=== PATIENT | female | born 1940 | race Caucasian/White ===

== ENCOUNTER → 2018-06-14 | Outpatient (CLI) | payer MEDICARE, BC ==
[~2018-06-14] MED LIST: AMLODIPINE BESYL5 MG PO; EVISTA60 MG PO; FOLIC ACID1 MG PO; LEVOTHYROXINE50 MCG PO; LOSARTAN POTAS100 MG PO; METHOTREXATE2.5 MG PO; OMEPRAZOLE40 MG PO
--- NOTE | 2018-06-14 13:42 | Diagnostic Imaging Report ---
Exam: Cervical spine AP lateral oblique History: Neck pain Comparison: None. Findings: No fracture. Retrolisthesis of C4 on C5. Multilevel degenerative disc disease of the cervical spine most advanced at C3-C4 through C6-C7. Mild multilevel facet arthrosis and uncovertebral hypertrophy. Impression: No acute osseous abnormality Retrolisthesis of C4 on C5. Advanced multilevel degenerative disc disease from C3-C4 through C6-C7. Signed by: Dr. Vincent Samuels M.D. on 06/14/2018 1:39 PM
== END ==
LOC: RAD 10:50
DX: M54.2 Cervicalgia (principal)
CPT/HCPCS: 72050

== ENCOUNTER → 2018-07-06 | Outpatient (CLI) | payer MEDICARE, BC ==
--- NOTE | 2018-07-06 11:36 | Diagnostic Imaging Report ---
EXAM: CHEST 2 VIEWS, PA and lateral DATE: 07/06/2018 Time stamp on exam: 10:44 AM INDICATION: Leukocytosis COMPARISON: None FINDINGS: LINES/TUBES: None LUNGS: Focal right medial basilar opacity consistent with a infiltrate. PLEURA: No effusions or pneumothorax. HEART AND MEDIASTINUM: Normal size and contour. BONES AND SOFT TISSUES: No acute findings. IMPRESSION: Right basilar infiltrate. Signed by: Dr. Angel Ohara DO on 07/06/2018 11:32 AM
== END ==
LOC: RAD 10:33
DX: D72.829 Elevated white blood cell count, unspecified (principal)
CPT/HCPCS: 71046

== ENCOUNTER → 2018-07-25 | Outpatient (CLI) | payer MEDICARE, BC ==
--- NOTE | 2018-07-25 16:28 | Diagnostic Imaging Report ---
Frontal and lateral views of the chest. HISTORY: F/U PNEUMONIA COMPARISON: Chest radiographs July 06, 2018 and April 13, 2007. DISCUSSION: Lungs: The lungs are well inflated. No evidence of a consolidative pneumonia or pulmonary alveolar edema. In the right infrahilar region, there is been slowly increasing hyperdensity since 2006. Pleura: No pleural effusion or pneumothorax. Heart and mediastinum: The cardiomediastinal silhouette appears unremarkable. Diffuse scattered atherosclerotic vascular calcifications. Bones and soft tissues: Appear unremarkable. IMPRESSION: Persistent right infrahilar density, which may be secondary to the costovertebral junction or evolving granuloma. Recommend a CT of chest without contrast for further evaluation. Signed by: Dr. Domo Winston D.O., M.M.M. on 07/25/2018 4:25 PM
== END ==
LOC: RAD 15:21
DX: Z09 Encounter for follow-up examination after completed treatment for conditions other than malignant neoplasm (principal); J18.9 Pneumonia, unspecified organism
CPT/HCPCS: 71046

== ENCOUNTER → 2018-08-11 | Outpatient (CLI) | payer MEDICARE, BC ==
[~2018-08-11] MED LIST changes: +IOPAMIDOL 370 MG/ML 200 ML INFUS..BTL INJ ONE; +SODIUM CHLORIDE 0.9% 50ML 50 ML ONE
[2018-08-11 13:25] LABS: CREATININE, SERUM 0.93 mg/dL (0.57-1.11)
--- NOTE | 2018-08-11 15:48 | Diagnostic Imaging Report ---
EXAM: CT Chest WITH contrast INDICATION: Chest radiograph demonstrating right infrahilar density. COMPARISON: Chest radiograph 07/25/2018. TECHNIQUE: Chest was scanned utilizing a multidetector helical scanner from the lung apex through the level of the adrenal glands without administration of IV contrast. Coronal and sagittal reformations were obtained. Routine protocol was performed. IV CONTRAST: 100 mL of Isovue-370. RADIATION DOSE: Total DLP: 499.8 mGy*cm Dose modulation, iterative reconstruction, and/or weight based adjustment of the mA/kV was utilized to reduce the radiation dose to as low as reasonably achievable. COMPLICATIONS: None FINDINGS: LINES/ TUBES: None. LUNGS AND AIRWAYS: The central airways are patent. Minimal biapical pleural-parenchymal opacity. There is a 3 mm groundglass nodule in the right upper lobe on series 3, image 37. There is a 4 mm solid nodule within the right middle lobe on image 64. Scattered 2 mm solid nodules, for example in the right upper lobe on on image 30. There is a 4 mm subpleural nodule in the right lower lobe on image 79. There is a 4 mm triangular-shaped solid nodule along the left major fissure on image 89. There is mild atelectasis in the right middle lobe and lingula. PLEURA: The pleural spaces are clear. HEART AND MEDIASTINUM: There is a 6 mm hypodense nodule within the right thyroid gland. No mediastinal, hilar or axillary lymphadenopathy. No cardiomegaly or pericardial effusion. Atherosclerotic calcifications within the thoracic aorta, branch vessels, and coronary arteries. Prominent right pericardial fat pad. UPPER ABDOMEN: Limited contrast-enhanced views of the upper abdomen are unremarkable. BONES: No acute osseous abnormality. No suspicious lytic or blastic lesions. SOFT TISSUES: Unremarkable. IMPRESSION: Patchy atelectasis in the right middle lobe adjacent to prominent pericardial fat pad likely corresponds to the right infrahilar opacity seen on prior chest radiograph. Small bilateral solid pulmonary nodules measuring up to 4 mm are likely benign in a low risk patient and require no further follow-up. If there is a clinical risk factor for malignancy such as smoking, a follow-up chest CT in 12 months may be considered. Signed by: Dr. Roxy Pena MD on 08/11/2018 3:45 PM
== END ==
LOC: CT 12:38
PROVIDERS: ATTEND Internal Medicine Critical Care Medicine
DX: R91.8 Other nonspecific abnormal finding of lung field (principal)
CPT/HCPCS: 36415; 71260; 82565; 84520; Q9967

== ENCOUNTER → 2018-12-20 | Outpatient (CLI) | payer MEDICARE, BC ==
[~2018-12-20] MED LIST changes: -IOPAMIDOL 370 MG/ML 200 ML INFUS..BTL INJ ONE; -SODIUM CHLORIDE 0.9% 50ML 50 ML ONE
--- NOTE | 2018-12-20 12:15 | Diagnostic Imaging Report ---
Exam: Bone mineral density study. History: 78-year-old postmenopausal female. Comparison: None Discussion: Evaluation of the left hip and lumbar spine was performed utilizing DEXA Hologic bone densitometer. The study is technically adequate. The patient's fracture risk is compared to an age-matched control. Left femoral neck bone mineral density: 0.798 g/cm2, T-score is -0.5, Z-score is 1.8. No previous comparison. Lumbar spine total bone mineral density: 1.15 gm/cm2, T-score is 0.9, Z-score is 3.5. No previous comparison. Impression: Bone mineralization by WHO Classification using T score is normal, fracture risk is not elevated. <T score: NL = -1 or higher Osteopenia = -1 to -2.5 Osteoporosis = -2.5 or lower Z score: < - 1.5 concerning for path> Recommendations: Medical evaluation for secondary causes of low bone mineral density may be appropriate. Correlate clinically for the necessity and timing of the next bone mineral density study. National Osteoporosis Foundation recommendations: Initiate therapy to reduce fracture risk in postmenopausal women with -BMD t-scores below -2 by central DXA with no risk factors -BMD t-scores below -1.5 by central DXA with one or more risk factors (first deg relative with hip fracture, prior personal fracture, low body weight, smoking) -A prior vertebral or hip fracture AACE (Clinical Endocrinology) recommends treating the following: Postmenopausal women who have osteoporosis as diagnosed by fragility fractures or t scores -2.5 or below Postmenopausal women who have risk factors (including fh of hip fracture, low body weight, smoking, risk of falling, high bone turnover, advancing age) and borderline low BMD T scores of -1.5 or below Adequate intake of calcium (at least 1200mg/day) and vitamin D (400-800 IU/day). Regular weight bearing and muscle - strengthening exercises Avoid smoking and excessive alcohol Signed by: Ga Gonzales on 12/20/2018 12:12 PM
--- NOTE | 2019-01-10 09:13 | Diagnostic Imaging Report ---
#[id number] - [id number] #BILATERAL DIGITAL SCREENING MAMMOGRAM WITH CAD: 12/20/2018 CLINICAL: Routine screening. No prior exams were available for comparison. Current study contains 4 films. The tissue of both breasts is heterogeneously dense. This may lower the sensitivity of mammography. Current study was also evaluated with a Computer Aided Detection (CAD) system. There are benign vascular calcifications in both breasts. Benign appearing calcifications are noted bilaterally. No significant masses, calcifications, or other findings are seen in either breast. IMPRESSION: BENIGN There is no mammographic evidence of malignancy. A 1 year screening mammogram is recommended. The patient will be notified by letter of the results. NANETTE PEARSON M.D. ct/penrad:01/09/2019 09:27:20 Photographer: Apryl CANTU)([place]), [facility] letter sent: Normal Exam Mammogram BI-RADS: 2 Benign
== END ==
LOC: MAMMO 10:01
DX: Z12.31 Encounter for screening mammogram for malignant neoplasm of breast (principal); M81.0 Age-related osteoporosis without current pathological fracture
CPT/HCPCS: 77067; 77080